=== PATIENT | female | born 1990 | race Caucasian/White ===

== ENCOUNTER 2017-04-16 22:45 | Emergency (ER) | payer BC ==
[~2017-04-16] VITALS: Ht 157.5 cm; Wt 77.1 kg
--- NOTE | 2017-04-16 22:55 | NUR ---
Pt is received alert, responsive as she came in c/o Suddden onset of chest pain that started at 1400 yesterday that progressed to left arm. Her care continue as awaits MD orders.
[2017-04-16] MEDS ORDERED: ASPIRIN 81 MG TAB.CHEW PO ONE (23:30)
[2017-04-16] MEDS ORDERED: KETOROLAC TROMETHAMINE 30 MG INJ IVP ONE (23:30)
[2017-04-16 23:55] LABS: BASOPHILS # (AUTO) 0.1 K/uL (0.0-8.0); BASOPHILS % (AUTO) 0.7 % (0.0-2.0); EOSINOPHILS # (AUTO) 0.3 K/uL (0.0-0.7); EOSINOPHILS % (AUTO) 3.6 % (0.0-7.0); HEMATOCRIT 43.2 % (31.2-41.9); HEMOGLOBIN 15.1 g/dL (10.9-14.3); LYMPHOCYTES # (AUTO) 3.1 K/uL (20.0-40.0); LYMPHOCYTES % (AUTO) 42.7 % (20.5-51.5); MEAN CORPUSCULAR HGB CONC 35 g/dL (32.3-35.6); MONOCYTES # (AUTO) 0.5 K/uL (2.0-10.0); NEUTROPHILS # (AUTO) 3.4 K/uL (1.8-8.9); PLATELET COUNT (AUTO) 254 K/uL (179-408); RED BLOOD CELL COUNT(AUTO) 5.21 MIL/uL (3.63-4.92); WHITE BLOOD COUNT (AUTO) 7.3 K/uL (3.8-11.8)
[2017-04-17 00:11] LABS: *URINE HCG, QUAL NEGATIVE (NEGATIVE)
[2017-04-17 00:13] LABS: CREATININE 0.7 mg/dL (0.6-1.3)
[2017-04-17] MEDS ORDERED: KETOROLAC TROMETHAMINE 30 MG INJ ONE (00:16)
--- NOTE | 2017-04-17 00:16 | NUR ---
Pt is been medicated with Toradol 30mg IVP and ASA 81mg po , also a CXR is done as ordered. Pt care continue.
[2017-04-17] MEDS ORDERED: ASPIRIN 81 MG TAB.CHEW ONE (00:17)
[2017-04-17 00:35] LABS: BILIRUBIN,DIRECT 0.1 mg/dL (0.0-0.2); BILIRUBIN,TOTAL 0.1 mg/dL (0.2-1.0); TOTAL PROTEIN, SERUM 7.8 g/dL (6.4-8.2)
--- NOTE | 2017-04-17 01:58 | NUR ---
Pt is resting in bed alert, responsive as she is due for a 2nd set off blood work Troponin as ordered as EKG shows Normal Sinus Rhythm. Her care continue while monitor,
--- NOTE | 2017-04-17 04:13 | NUR ---
Patient discharged to home in stable conditon. Written and verbal after care instructions given. Patient verbalizes understanding of instructions.
== END 2017-04-17 04:13 | disposition home or self-care (01) ==
LOC: ER 22:45
DX: M79.602 Pain in left arm (principal); R07.9 Chest pain, unspecified; R00.2 Palpitations
CPT/HCPCS: 36415 ×2; 71010; 80048; 80076; 83880; 84484 ×2; 84703; 85025; 93005; 96374; 99285; A4663; J1885; 70030-TC